=== PATIENT | male | born 1975 | race Caucasian/White ===

== ENCOUNTER 2021-12-18 11:42 | Day surgery (SDC) | payer OTHER ==
[~2021-12-18] VITALS: Ht 172.7 cm; Wt 193.0 kg
[~2021-12-18 11:42] MED LIST: AMLO10TA55 PO; ATEN-73 PO; CHL25 PO; DOXY-336 PO; LOSA-382 PO; SEMA7TAB2 PO; SODIUM CHLORIDE 0.9% 1,000 ML IV ONE; SODIUM CHLORIDE 0.9% 1,000 ML ONE
[2021-12-18] MEDS ORDERED: PROPOFOL 1% 20 ML VIAL IVP ONE (12:00)
[2021-12-18 12:36] LABS: COVID AG,FIA SOURCE NASAL SWAB
== END 2021-12-18 16:10 | disposition home or self-care (01) ==
LOC: SURGERY 11:42
PROVIDERS: ATTEND Internal Medicine Gastroenterology
DX: D12.2 Benign neoplasm of ascending colon (principal); K57.30 Diverticulosis of large intestine without perforation or abscess without bleeding; I10 Essential (primary) hypertension; K64.8 Other hemorrhoids; Z98.890 Other specified postprocedural states; Z79.899 Other long term (current) drug therapy; Z20.822 Contact with and (suspected) exposure to COVID-19
CPT/HCPCS: 45385; 87426; 88305; C1769; J2704; J7030; C9803